=== PATIENT | female | born 2000 | race Caucasian/White ===

== ENCOUNTER 2020-08-27 13:16 | Emergency (ER) | payer OTHER ==
[2020-08-27 13:22] VITALS: BP 135/77; PULSE 84; TEMP 98; BMI 24.5
[2020-08-27] MEDS ORDERED: IBUPROFEN 400 MG TABLET (FP) PO ONE ×2 (13:53→14:01)
--- NOTE | 2020-08-27 14:15 | PDOC ---
History of Present Illness - General Chief Complaint: Pain Stated Complaint: RT. LEG WEAKNESS(FALL) Time Seen by Provider: 08/27/20 13:37 History Source: Patient Exam Limitations: No Limitations - History of Present Illness Initial Comments: 08/27/20 14:09 19 yr old female status post fall 2 days ago now complaining of right knee and right ankle pain worsened with ambulation patient states was carrying something at work when she tripped twisting her right ankle causing her to land on her right side. Patient is taken nothing for the pain and decided come to the ER for further evaluation. Occurred: reports: yesterday Severity: reports: mild Pain Location: reports: lower extremity Method of Injury: Yes: fall Associated Symptoms (Fall): trouble walking Past History - Travel History Traveled outside of the country in the last 30 days: No - Medical History Allergies/Adverse Reactions: Allergies Allergy/AdvReac Type Severity Reaction Status Date / Time No Known Allergies Allergy Verified 08/27/20 13:21 COPD: No - Reproductive History Is Patient Now?: No - Psycho-Social/Smoking History Smoking History: Never smoked Review of Systems - Review of Systems Able to Perform ROS?: Yes Constitutional: No: Symptoms Reported HEENTM: No: Symptoms Reported Musculoskeletal: Yes: Joint Pain. No: Muscle Pain Integumentary: No: Symptoms Reported Neurological: No: Symptoms reported Endocrine: No: Symptoms Reported Hematologic/Lymphatic: No: Symptoms Reported *Physical Exam - Vital Signs Last Vital Signs Temp Pulse Resp BP Pulse Ox 98 F 84 18 135/77 100 08/27/20 13:19 08/27/20 13:19 08/27/20 13:19 08/27/20 13:19 08/27/20 13:19 - Physical Exam General Appearance: Yes: Nourished, Appropriately Dressed. No: Apparent Distress HEENT: positive: EOMI Neck: positive: Supple. negative: Decreased range of motion, Tender lateral, Tender midline Respiratory/Chest: negative: Respiratory Distress Gastrointestinal/Abdominal: negative: Distended Extremity: positive: Normal Capillary Refill, Normal Inspection, Normal Range of Motion, Tender (Over lateral aspect of right malleolus along with anterior aspect of right patella ). negative: Pedal Edema Integumentary: positive: Normal Color, Warm, Moist. negative: Swelling, Ecchymosis Neurologic: positive: Motor Strength 5/5 (Ambulatory) Deep Tendon Reflexes: Knee (R): 2+ ED Treatment Course - RADIOLOGY Radiology Studies Ordered: Category Date Time Status ANKLE-RIGHT [RAD] Stat Radiology 08/27/20 13:52 Ordered KNEE 3 POS-RIGHT [RAD] Stat Radiology 08/27/20 13:52 Ordered - Medications Given in the ED: ED Medications Discontinued Medications Generic Name Dose Route Start Last Admin Trade Name Trung PRN Reason Stop Dose Admin Ibuprofen 400 mg 08/27/20 13:53 08/27/20 14:03 Motrin - PO 08/27/20 13:54 400 mg ONCE ONE Administration Medical Decision Making - Medical Decision Making 08/27/20 14:14 Chief complaint: Status post mechanical fall while at work yesterday now with pain to the right ankle and right knee causing difficulty ambulating. No other complaints. Exam: Patient with normal reflexes normal physical exam but with noted tenderness to the ankle and knee of the right lower extremity. Plan: X-ray of the above Motrin p.o. 08/27/20 14:49 X-rays negative for acute pathology. Will discharge patient home with crutches. Discharge - Discharge Information Problems reviewed: Yes Clinical Impression/Diagnosis: Knee injury Condition: Good Disposition: HOME - Follow up/Referral Referrals: Phuong Ortega MD [Primary Care Provider] - - Patient Discharge Instructions Patient Printed Discharge Instructions: DI for Knee Pain Additional Instructions: I recommend taking Motrin 4 to 600 mg every 8 hours for pain. Avoid movements that trigger discomfort. Use crutches during the day to alleviate discomfort to the right ankle and right knee. - Post Discharge Activity
== END 2020-08-27 15:39 | disposition home or self-care (01) ==
LOC: JERFT 13:16
DX: S80.911A Unspecified superficial injury of right knee, initial encounter (principal)
CPT/HCPCS: 73562-TC-RT-FY; 73610-TC-RT-FY; 99284-25